=== PATIENT | female | born 1980 | race Caucasian/White ===

== ENCOUNTER 2017-05-05 00:25 | Emergency (ER) | payer MEDICAID ==
[~2017-05-05] VITALS: Ht 157.5 cm; Wt 50.0 kg
[2017-05-05] MEDS ORDERED: KETOROLAC 30MG/ML VIAL IV STA (01:03)
[2017-05-05] MEDS ORDERED: SODIUM CHLORIDE 0.9% 1,000 ML IV ONE (01:03)
[2017-05-05 01:23] LABS: CHLORIDE 106 mEq/L (98-107)
[2017-05-05 01:26] LABS: BASOPHILS % 0.6 % (0.0-2.0); EOSINOPHILS % 0.7 % (0.0-5.0); HCG SCREEN NEGATIVE; HEMOGLOBIN. 12.8 g/dL (12.0-16.0); LYMPHOCYTES % 31.4 % (20.0-50.0); MEAN CORPUSCULAR HEMOGLOBIN 30.4 pg (28.0-32.0); MEAN CORPUSCULAR VOLUME 90.2 fL (81.0-99.0); MEAN PLATELET VOLUME 11.2 fl (7.4-10.4); MONOCYTES % 10.8 % (2.0-8.0); NEUTROPHILS % 56.5 % (40.0-76.0); PLATELET 151 x1000/uL (130-400); RED BLOOD CELL COUNT 4.22 mill/uL (4.2-5.4)
[2017-05-05 01:27] LABS: INR 1.1; PROTHROMBIN TIME 11.2 sec (9.4-11.6)
[2017-05-05 01:31] LABS: CLARITY URINE CLOUDY (CLEAR); COLOR URINE DARK YELLOW (YELLOW); GLUCOSE URINE NEGATIVE (NEGATIVE); KETONES URINE TRACE (NEGATIVE); LEUKOCYTE ESTERASE URINE NEGATIVE (NEGATIVE); NITRITE URINE NEGATIVE (NEGATIVE); OCCULT BLOOD URINE 1+ (NEGATIVE); PROTEIN URINE 1+ (NEGATIVE); SPECIFIC GRAVITY URINE 1.063 (1.005-1.030)
[2017-05-05 01:31] LABS: CARBON DIOXIDE 23 mEq/L (21-32)
[2017-05-05] MEDS ORDERED: POTASSIUM CHLORIDE 20MEQ TABLET SR PO ONE (03:45)
[2017-05-05 05:19] VITALS: BP 100/61
== END 2017-05-05 05:51 | disposition home or self-care (01) ==
LOC: ER 00:26
DX: R10.30 Lower abdominal pain, unspecified (principal)
CPT/HCPCS: 36415; 80053; 81001; 83690; 84703; 85025; 85610; 96374; 99284; J1885; J7030; Z7610

== ENCOUNTER 2018-02-11 20:04 | Emergency (ER) | payer MEDICAID ==
[~2018-02-11] VITALS: Ht 170.2 cm; Wt 54.2 kg
[2018-02-11] MEDS ORDERED: ONDANSETRON HCL 4MG/2ML VIAL IV STA (22:26)
[2018-02-11] MEDS ORDERED: SODIUM CHLORIDE 0.9% 1,000 ML IV ONE (22:26)
[2018-02-11] MEDS ORDERED: KETOROLAC 30MG/ML VIAL IV STA (22:26)
[2018-02-12 00:40] VITALS: BP 108/55
== END 2018-02-12 00:45 | disposition home or self-care (01) ==
LOC: ER 20:44
DX: R51 Headache (principal); R53.1 Weakness; Z90.89 Acquired absence of other organs
CPT/HCPCS: 96374; 96375; 99285; J1885; J2405; J7030; Z7610

== ENCOUNTER 2019-05-15 15:54 | Emergency (ER) | payer MEDICAID ==
[~2019-05-15] VITALS: Ht 165.1 cm; Wt 57.0 kg
[2019-05-15 18:34] VITALS: BP 128/74
== END 2019-05-15 21:16 | disposition left against medical advice (07) ==
LOC: ER 15:54
DX: M54.5 Low back pain (principal); Z53.21 Procedure and treatment not carried out due to patient leaving prior to being seen by health care provider

== ENCOUNTER 2019-05-16 09:40 | Emergency (ER) | payer MEDICAID ==
[~2019-05-16] VITALS: Ht 165.1 cm; Wt 57.0 kg
[2019-05-16] MEDS ORDERED: METOCLOPRAMIDE HCL 10MG/2ML VIAL IV ONE (11:15)
[2019-05-16] MEDS ORDERED: DICYCLOMINE HCL 10MG/ML 2ML AMP IM ONE (11:15)
[2019-05-16 11:43] LABS: BASOPHILS % 1.1 % (0.0-2.0); EOSINOPHILS % 3.2 % (0.0-5.0); HEMATOCRIT. 44.2 % (36.0-48.0); HEMOGLOBIN. 14.8 g/dL (12.0-16.0); LYMPHOCYTES % 26.3 % (20.0-50.0); MEAN CORPUSCULAR HEMOGLOBIN 31.4 pg (28.0-32.0); MEAN CORPUSCULAR VOLUME 94.1 fL (81.0-99.0); MONOCYTES % 7.8 % (2.0-8.0); NEUTROPHILS % 61.6 % (40.0-76.0); RED CELL DISTRIBUTION WIDTH 13.6 % (11.6-14.6)
[2019-05-16 11:44] LABS: CHLORIDE 109 mEq/L (98-107)
[2019-05-16 11:45] LABS: CLARITY URINE CLOUDY (CLEAR); COLOR URINE YELLOW (YELLOW); KETONES URINE TRACE (NEGATIVE); LEUKOCYTE ESTERASE URINE 3+ (NEGATIVE); NITRITE URINE NEGATIVE (NEGATIVE); OCCULT BLOOD URINE 1+ (NEGATIVE); PH URINE 5.5 (4.5-8.0); PROTEIN URINE 1+ (NEGATIVE)
[2019-05-16 12:12] LABS: MEAN PLATELET VOLUME 11.6 fl (7.4-10.4); PLATELET 174 x1000/uL (130-400)
[2019-05-16] MEDS ORDERED: IOHEXOL-300 100 ML BOTTLE ONE (12:40)
[2019-05-16 15:02] VITALS: BP 110/72
== END 2019-05-16 15:15 | disposition home or self-care (01) ==
LOC: ER 09:40
DX: R10.31 Right lower quadrant pain (principal); E05.90 Thyrotoxicosis, unspecified without thyrotoxic crisis or storm
CPT/HCPCS: 36415; 74177; 76830; 76856; 80053; 81003; 81025; 83690; 85025; 87086; 96372; 96374; 99284; J0500; J2765; Q9967

== ENCOUNTER 2019-11-21 04:48 | Emergency (ER) | payer MEDICAID ==
[~2019-11-21] VITALS: Ht 165.1 cm; Wt 57.0 kg
[2019-11-21 07:05] LABS: INR 0.9; PROTHROMBIN TIME 10.3 sec (9.6-11.0)
[2019-11-21 07:09] LABS: BASOPHILS % 0.7 % (0.0-2.0); HEMATOCRIT. 44.6 % (36.0-48.0); HEMOGLOBIN. 15.4 g/dL (12.0-16.0); LYMPHOCYTES % 14.4 % (20.0-50.0); MEAN CORPUSCULAR HEMOGLOBIN 32.3 pg (28.0-32.0); MEAN CORPUSCULAR VOLUME 93.6 fL (81.0-99.0); MONOCYTES % 7.3 % (2.0-8.0); NEUTROPHILS % 76.6 % (40.0-76.0); RED BLOOD CELL COUNT 4.77 mill/uL (4.2-5.4); RED CELL DISTRIBUTION WIDTH 13.4 % (11.6-14.6)
[2019-11-21 07:10] LABS: CHLORIDE 108 mEq/L (98-107)
[2019-11-21 07:14] LABS: HCG SCREEN NEGATIVE
[2019-11-21 07:19] LABS: T4 FREE 1.62 ng/dL (0.76-1.46)
[2019-11-21 08:00] LABS: PLATELET 148 x1000/uL (130-400)
[2019-11-21] MEDS ORDERED: METOCLOPRAMIDE HCL 10MG/2ML VIAL IV ONE (08:30)
[2019-11-21] MEDS ORDERED: KETOROLAC 30MG/ML VIAL IV ONE (08:30)
[2019-11-21 09:23] VITALS: BP 102/66
== END 2019-11-21 09:51 | disposition home or self-care (01) ==
LOC: ER 05:35
DX: R51 Headache (principal); E03.9 Hypothyroidism, unspecified
CPT/HCPCS: 36415; 70450; 80053; 81025; 84439; 84443; 84703; 85025; 85610; 96374; 96375; 99284; J1885; J2765

== ENCOUNTER 2021-09-09 05:07 | Emergency (ER) | payer MEDICAID ==
[~2021-09-09] VITALS: Ht 165.1 cm; Wt 59.0 kg
[2021-09-09 05:42] LABS: BASOPHILS % 1.4 % (0.0-2.0); HEMATOCRIT. 38.4 % (36.0-48.0); HEMOGLOBIN. 12.8 g/dL (12.0-16.0); LYMPHOCYTES % 33.1 % (20.0-50.0); MEAN CORPUSCULAR HEMOGLOBIN 31.2 pg (28.0-32.0); MEAN CORPUSCULAR VOLUME 93.3 fL (81.0-99.0); MEAN PLATELET VOLUME 10.8 fl (7.4-10.4); MONOCYTES % 9.6 % (2.0-8.0); NEUTROPHILS % 47.9 % (40.0-76.0); PLATELET 151 x1000/uL (130-400); RED BLOOD CELL COUNT 4.11 mill/uL (4.2-5.4); RED CELL DISTRIBUTION WIDTH 13.9 % (11.6-14.6)
[2021-09-09 05:53] LABS: CHLORIDE 110 mEq/L (98-107)
[2021-09-09 13:03] VITALS: BP 108/56
== END 2021-09-09 13:09 | disposition home or self-care (01) ==
LOC: ER 05:07
DX: R07.9 Chest pain, unspecified (principal); E05.90 Thyrotoxicosis, unspecified without thyrotoxic crisis or storm
CPT/HCPCS: 36415; 71045; 80053; 83880; 84443; 84484; 85025; 85379; 93005; 99285

== ENCOUNTER 2023-05-11 02:40 | Emergency (ER) | payer MEDICAID ==
[2023-05-11 05:55] VITALS: BP 125/86; PULSE 98; RESP 18; TEMP 98.1
[2023-05-11 06:25] LABS: HEMATOCRIT 39.1 % (36.0-48.0); MEAN CORPUSCULAR HEMOGLOBIN 29.7 pg (28.0-32.0); MEAN CORPUSCULAR HGB CONC 33.3 g/dL (31.0-37.0); MEAN CORPUSCULAR VOLUME 89.3 fL (81.0-99.0); PLATELET 210 x1000/uL (130-400); RED BLOOD CELL COUNT 4.38 mill/uL (4.2-5.4); RED CELL DISTRIBUTION WIDTH 14.7 % (11.6-14.6); WHITE BLOOD COUNT 7.6 x1000/uL (4.5-11.0)
[2023-05-11 06:46] LABS: ALANINE AMINOTRANSFERASE < 7 IU/L (10-49); ALBUMIN 4.2 g/dL (3.2-4.8); ASPARTATE AMINOTRANSFERASE 18 IU/L (<34); BILIRUBIN TOTAL 0.9 mg/dL (0.1-1.0); CARBON DIOXIDE 23 mEq/L (21-32); CHLORIDE 108 mEq/L (98-107); CREATININE 0.8 mg/dL (0.6-1.0); GLUCOSE 65 mg/dL (70-105); POTASSIUM 4.1 mEq/L (3.5-5.1); PROTEIN TOTAL 7.3 g/dL (6.0-8.3); SODIUM 139 mEq/L (136-145); UREA NITROGEN BLOOD 10 mg/dL (9-23)
[2023-05-11 08:01] LABS: TROPONIN I HIGH SENSITIVITY < 4 ng/L (3.0-34)
[2023-05-11 08:31] LABS: PROTHROMBIN TIME 10.7 sec (9.6-11.0)
[2023-05-11 08:52] LABS: HCG SCREEN NEGATIVE
== END 2023-05-11 10:05 | disposition home or self-care (01) ==
LOC: ER 02:40
DX: R07.89 Other chest pain (principal); Z86.39 Personal history of other endocrine, nutritional and metabolic disease
CPT/HCPCS: 80053; 81025; 84703; 83690; 85027; 85610; 84484; 36415; 71045; 99284; Z7610 ×2

== ENCOUNTER 2024-02-08 17:21 | Emergency (ER) | payer MEDICAID ==
[~2024-02-08] VITALS: Ht 160 cm; Wt 66.0 kg
[2024-02-08 17:34] VITALS: O2SAT 99
[2024-02-08 19:25] LABS: BASOPHILS % 0.9 % (0.0-2.0); DIFFERENTIAL COMMENT 0; EOSINOPHILS % 4.9 % (0.0-5.0); HEMOGLOBIN. 11.9 g/dL (12.0-16.0); LYMPHOCYTES % 17.2 % (20.0-50.0); MEAN CORPUSCULAR HGB CONC 31.3 g/dL (31.0-37.0); MEAN CORPUSCULAR VOLUME 86.5 fL (81.0-99.0); MONOCYTES % 10.3 % (2.0-8.0); NEUTROPHILS % 66.7 % (40.0-76.0); PLATELET 236 x1000/uL (130-400); RED BLOOD CELL COUNT 4.39 mill/uL (4.2-5.4); RED CELL DISTRIBUTION WIDTH 17.6 % (11.6-14.6); WHITE BLOOD COUNT 6.7 x1000/uL (4.5-11.0)
[2024-02-08 19:29] LABS: CHLORIDE 107 mEq/L (98-107); SODIUM 139 mEq/L (136-145)
[2024-02-08 19:31] LABS: CALCIUM 9.1 mg/dL (8.7-10.4); CARBON DIOXIDE 28 mEq/L (21-32)
[2024-02-08 19:36] LABS: GLUCOSE 94 mg/dL (70-105); UREA NITROGEN BLOOD 9 mg/dL (9-23)
[2024-02-08 19:38] LABS: ALANINE AMINOTRANSFERASE < 7 IU/L (10-49); ALBUMIN 4.5 g/dL (3.2-4.8); ASPARTATE AMINOTRANSFERASE 16 IU/L (<34); BILIRUBIN DIRECT 0.1 mg/dL (<=3.0); BILIRUBIN TOTAL 0.5 mg/dL (0.1-1.0); PROTEIN TOTAL 7.7 g/dL (6.0-8.3)
[2024-02-08] MEDS ORDERED: LIDO700A30 TP (20:22)
[2024-02-08] MEDS ORDERED: NAPR500T7 MT (20:22)
[2024-02-08] MEDS ORDERED: TOPUD PO (20:22)
[2024-02-08] MEDS ORDERED: CYCL5TAB MT (20:22)
[2024-02-08 21:13] VITALS: BP 110/61; PULSE 72; RESP 18; TEMP 37.00296; O2SAT 100
[2024-02-08 21:15] LABS: CLARITY URINE CLEAR (CLEAR); COLOR URINE YELLOW (YELLOW); GLUCOSE URINE NEGATIVE (NEGATIVE); KETONES URINE NEGATIVE (NEGATIVE); LEUKOCYTE ESTERASE URINE NEGATIVE (NEGATIVE); NITRITE URINE NEGATIVE (NEGATIVE); OCCULT BLOOD URINE 3+ (NEGATIVE); PH URINE 5.5 (4.5-8.0); PROTEIN URINE NEGATIVE (NEGATIVE); UROBILINOGEN URINE 0.2 E.U./dL (0.2-1.0)
[2024-02-08 21:35] LABS: BACTERIA URINE 1+; SQUAMOUS EPITHELIAL CELL URINE FEW /lpf (RARE/1+)
[2024-02-08 21:36] LABS: RBC URINE 50-100 /hpf (0-2); WBC URINE 0-2 /hpf (0-2)
== END 2024-02-08 21:16 | disposition home or self-care (01) ==
LOC: ER 17:21
DX: M54.50 Low back pain, unspecified (principal); E03.9 Hypothyroidism, unspecified; Z98.890 Other specified postprocedural states; Z90.49 Acquired absence of other specified parts of digestive tract
CPT/HCPCS: 36415; 80048; 80076; 81003; 81025; 85025; 86850; 86900; 93005; 99284